=== PATIENT | male | born 1940 | race Caucasian/White ===

== ENCOUNTER 2019-07-11 10:49 | Inpatient (IN) ==
[2019-07-11] MEDS ORDERED: Furosemide 40 MG/4 ML VIAL IVP ONE (14:27)
[2019-07-11] MEDS ORDERED: Ondansetron 4 MG/2 ML VIAL IVP PRN (14:30)
[2019-07-11] MEDS ORDERED: Naloxone 0.4 MG/ML INJ IVP PRN (14:30)
[2019-07-12] MEDS: Acetaminophen 325 MG TABLET PO PRN ×2 (01:31→22:56)
[2019-07-12] MEDS: Melatonin 3 MG TABLET PO PRN ×2 (01:31→22:56)
[2019-07-12 06:13] LABS: Basophils # 0.1 K/mcL (0.0-0.2); Basophils % 0.5 %; Eosinophils # 1.2 K/mcL (0.0-0.6); Eosinophils % 9.3 %; Hematocrit 32.4 % (37.5-50.1); Immature Granulocytes % 0.4 % (0-4); Lymphocytes # 1.1 K/mcL (0.6-4.6); Lymphocytes % 8.1 %; Mean Corpuscular Hemoglobin 30.9 pg (28.0-33.3); Mean Platelet Volume 11.7 fL (9.4-12.4); Monocytes % 7.3 %; Neutrophils # 9.7 K/mcL (1.6-8.9); Platelet Count 197 K/mcL (140-400); Red Blood Count 3.56 M/mcL (4.19-5.50); Red Cell Distribution Width 14.3 % (11.5-14.5); Segmented Neutrophils % 74.4 %; White Blood Count 13.1 K/mcL (4.3-11.1)
[2019-07-12 07:02] LABS: Calcium 9.2 mg/dL (8.6-10.3); Magnesium 2.5 mg/dL (1.6-2.6); Potassium 4.7 mEq/L (3.5-5.1)
[2019-07-12 07:06] LABS: Folate 20.4 ng/mL (3.0-16.0)
[2019-07-12] MEDS ORDERED: Furosemide 40 MG/4 ML VIAL IVP SCH ×2 (09:00→21:00)
[2019-07-12] MEDS: amLODIPine 5 MG TABLET PO SCH (09:13)
[2019-07-12] MEDS: carvediloL 25 MG TABLET PO SCH ×2 (09:13→17:14)
[2019-07-12] MEDS: Aspirin Enteric Coated 325 MG Tablet PO SCH (09:13)
[2019-07-12 10:19] LABS: Procalcitonin 1.19 ng/mL (0.00-0.15)
[2019-07-12] MEDS ORDERED: levoFLOXacin 750 MG/150 ML 750 MG/150 ML BAG IVPB ONE (10:45)
[2019-07-12] MEDS: Furosemide 40 MG/4 ML VIAL IVP SCH (17:14)
[2019-07-13 05:03] LABS: Basophils # 0.1 K/mcL (0.0-0.2); Basophils % 0.6 %; Eosinophils # 1.1 K/mcL (0.0-0.6); Eosinophils % 9.8 %; Hematocrit 29.4 % (37.5-50.1); Hemoglobin 9.8 g/dL (12.9-16.9); Immature Granulocytes % 0.4 % (0-4); Lymphocytes # 0.8 K/mcL (0.6-4.6); Lymphocytes % 6.7 %; Mean Corpuscular HGB Conc 33.3 g/dL (31.6-35.5); Mean Corpuscular Hemoglobin 31.2 pg (28.0-33.3); Mean Corpuscular Volume 93.6 fL (83.0-100.0); Mean Platelet Volume 11.1 fL (9.4-12.4); Monocytes # 0.9 K/mcL (0.0-1.3); Monocytes % 8.3 %; Neutrophils # 8.3 K/mcL (1.6-8.9); Platelet Count 154 K/mcL (140-400); Red Blood Count 3.14 M/mcL (4.19-5.50); Red Cell Distribution Width 13.9 % (11.5-14.5); Segmented Neutrophils % 74.2 %; White Blood Count 11.1 K/mcL (4.3-11.1)
[2019-07-13 05:26] LABS: Calcium 8.8 mg/dL (8.6-10.3); Magnesium 2.5 mg/dL (1.6-2.6); Potassium 5.1 mEq/L (3.5-5.1)
[2019-07-13 08:44] LABS: INR 1.3; Prothrombin Time 14.2 Seconds (9.4-12.1)
[2019-07-13] MEDS ORDERED: *HR* Heparin 5,000 UNIT/ML VIAL ONE (08:47)
[2019-07-13] MEDS ORDERED: levoFLOXacin 500 MG TABLET PO SCH (09:00)
[2019-07-13] MEDS: Furosemide 40 MG/4 ML VIAL IVP SCH ×2 (09:10→18:13)
[2019-07-13] MEDS: amLODIPine 5 MG TABLET PO SCH (09:10)
[2019-07-13] MEDS: Aspirin Enteric Coated 325 MG Tablet PO SCH (09:10)
[2019-07-13] MEDS: carvediloL 25 MG TABLET PO SCH ×2 (09:10→18:12)
[2019-07-13 12:53] LABS: Bilirubin,Urine Negative (Negative); Blood,Urine Small (Negative); Clarity,Urine Clear (Clear); Color,Urine Yellow (Yellow); Glucose,Urine (UA) Normal (Normal); Ketones,Urine Negative (Negative); Leukocyte Esterase,Urine Negative (Negative); Nitrite,Urine Negative (Negative); PH,Urine 6.5 pH Units (5.0-8.0); Protein,Urine 100 mg/dL (Neg-Trace); Specific Gravity,Urine 1.012 (1.010-1.025); Urobilinogen,Urine Normal (Normal)
[2019-07-13 12:55] LABS: Bacteria,Urine None Seen per hpf (None-Few); Hyaline Casts,Urine None Seen per lpf (None-Few); Squamous Epithelial Cell,Urine Few per lpf (None-Few); WBC,Urine 0-3 per hpf (0-3)
[2019-07-13 13:03] LABS: Sodium, Urine 84.4 mEq/L
[2019-07-13 15:55] LABS: Hepatitis B Surface Antibody < 3.10 mIU/mL
[2019-07-13 16:06] LABS: Hepatitis B Surface Antigen Nonreactive (Nonreactive)
[2019-07-13] MEDS ORDERED: *HR* Heparin 10,000 UNIT/10 ML VIAL IV PRN (16:09)
[2019-07-13] MEDS ORDERED: 0.9 % Sodium Chloride 250 ML IVC PRN (16:09)
[2019-07-13] MEDS ORDERED: 0.9 % Sodium Chloride 1,000 ML PRIME SCH (16:15)
[2019-07-13] MEDS: *HR* Heparin 5,000 UNIT/ML VIAL SQ SCH (18:12)
[2019-07-14 01:24] LABS: Basophils # 0.1 K/mcL (0.0-0.2); Eosinophils # 0.2 K/mcL (0.0-0.6); Eosinophils % 3.3 %; Hematocrit 32.5 % (37.5-50.1); Hemoglobin 9.9 g/dL (12.9-16.9); Immature Granulocytes % 0.8 % (0-4); Lymphocytes # 0.9 K/mcL (0.6-4.6); Lymphocytes % 17.3 %; Mean Corpuscular HGB Conc 30.5 g/dL (31.6-35.5); Mean Corpuscular Volume 91.8 fL (83.0-100.0); Mean Platelet Volume 10.3 fL (9.4-12.4); Monocytes # 0.3 K/mcL (0.0-1.3); Monocytes % 6.7 %; Neutrophils # 3.5 K/mcL (1.6-8.9); Platelet Count 146 K/mcL (140-400); Red Blood Count 3.54 M/mcL (4.19-5.50); Red Cell Distribution Width 19.1 % (11.5-14.5); Segmented Neutrophils % 70.9 %
[2019-07-14 01:44] LABS: Calcium 7.7 mg/dL (8.6-10.3); Phosphorous 6.2 mg/dL (2.7-4.5); Potassium 4.8 mEq/L (3.5-5.1)
[2019-07-14 02:14] LABS: White Blood Count 4.9 K/mcL (4.3-11.1)
[2019-07-14] MEDS: *HR* Heparin 5,000 UNIT/ML VIAL SQ SCH ×2 (05:48→17:09)
[2019-07-14] MEDS: levoFLOXacin 500 MG TABLET PO SCH (08:59)
[2019-07-14] MEDS: Aspirin Enteric Coated 325 MG Tablet PO SCH (08:59)
[2019-07-14] MEDS: Furosemide 40 MG/4 ML VIAL IVP SCH ×2 (08:59→17:09)
[2019-07-14] MEDS: amLODIPine 5 MG TABLET PO SCH (08:59)
[2019-07-14] MEDS: carvediloL 25 MG TABLET PO SCH ×2 (08:59→17:08)
[2019-07-14] MEDS ORDERED: 0.9 % Sodium Chloride 250 ML IVC PRN (09:11)
[2019-07-14] MEDS ORDERED: *HR* Heparin 10,000 UNIT/10 ML VIAL IV PRN (09:11)
[2019-07-15] MEDS: *HR* Heparin 5,000 UNIT/ML VIAL SQ SCH ×2 (05:15→17:22)
[2019-07-15 05:38] LABS: Basophils % 0.6 %; Immature Granulocytes % 0.3 % (0-4); Mean Platelet Volume 11.5 fL (9.4-12.4)
[2019-07-15 05:40] LABS: Basophils # 0.1 K/mcL (0.0-0.2); Eosinophils # 1.2 K/mcL (0.0-0.6); Eosinophils % 10.1 %; Hematocrit 29.8 % (37.5-50.1); Hemoglobin 10.2 g/dL (12.9-16.9); Immature Platelets 5.8 % (1.1-6.1); Lymphocytes # 1.2 K/mcL (0.6-4.6); Lymphocytes % 9.6 %; Mean Corpuscular HGB Conc 34.2 g/dL (31.6-35.5); Mean Corpuscular Hemoglobin 31.3 pg (28.0-33.3); Mean Corpuscular Volume 91.4 fL (83.0-100.0); Monocytes # 1.1 K/mcL (0.0-1.3); Monocytes % 8.8 %; Neutrophils # 8.7 K/mcL (1.6-8.9); Platelet Count 91 K/mcL (140-400); Red Blood Count 3.26 M/mcL (4.19-5.50); Red Cell Distribution Width 14.4 % (11.5-14.5); Segmented Neutrophils % 70.6 %; White Blood Count 12.3 K/mcL (4.3-11.1)
[2019-07-15 06:04] LABS: Calcium 8.5 mg/dL (8.6-10.3); Magnesium 2.1 mg/dL (1.6-2.6); Phosphorous 4.1 mg/dL (2.7-4.5); Potassium 4.6 mEq/L (3.5-5.1)
[2019-07-15] MEDS: Furosemide 40 MG/4 ML VIAL IVP SCH ×2 (07:34→17:22)
[2019-07-15] MEDS: amLODIPine 5 MG TABLET PO SCH (11:06)
[2019-07-15] MEDS: carvediloL 25 MG TABLET PO SCH ×2 (11:07→17:22)
[2019-07-15] MEDS: Aspirin 81 MG TAB.CHEW PO SCH (11:07)
[2019-07-16] MEDS: *HR* Heparin 5,000 UNIT/ML VIAL SQ SCH ×2 (05:01→17:45)
[2019-07-16 05:54] LABS: Basophils # 0.1 K/mcL (0.0-0.2); Basophils % 0.7 %; Eosinophils # 1.5 K/mcL (0.0-0.6); Eosinophils % 12.7 %; Hematocrit 30.1 % (37.5-50.1); Hemoglobin 10.3 g/dL (12.9-16.9); Immature Granulocytes % 0.3 % (0-4); Lymphocytes # 1.2 K/mcL (0.6-4.6); Lymphocytes % 9.9 %; Mean Corpuscular HGB Conc 34.2 g/dL (31.6-35.5); Mean Corpuscular Hemoglobin 31.3 pg (28.0-33.3); Mean Corpuscular Volume 91.5 fL (83.0-100.0); Monocytes # 1.1 K/mcL (0.0-1.3); Monocytes % 8.8 %; Neutrophils # 8.1 K/mcL (1.6-8.9); Platelet Count 115 K/mcL (140-400); Red Blood Count 3.29 M/mcL (4.19-5.50); Red Cell Distribution Width 14.3 % (11.5-14.5); Segmented Neutrophils % 67.6 %
[2019-07-16 05:57] LABS: INR 1.1; Prothrombin Time 12.7 Seconds (9.4-12.1)
[2019-07-16 05:58] LABS: Activated Partial Thrombo Time 26.8 Seconds (26.0-36.0)
[2019-07-16 06:25] LABS: Calcium 8.6 mg/dL (8.6-10.3); Magnesium 2.2 mg/dL (1.6-2.6); Potassium 4.8 mEq/L (3.5-5.1)
[2019-07-16] MEDS ORDERED: Heparin 1,000 UNITS/500 mL 500 ML ONE (07:57)
[2019-07-16] MEDS ORDERED: 0.9 % Sodium Chloride 500 ML ONE (08:08)
[2019-07-16] MEDS ORDERED: CeFAZolin Premix DUPLEX 2,000 MG/50 ML BAG IVPB ONE (08:23)
[2019-07-16] MEDS ORDERED: *HR* Heparin 5,000 UNIT/ML VIAL ONE (08:37)
[2019-07-16] MEDS ORDERED: *HR* Heparin 10,000 UNIT/10 ML VIAL IV PRN (09:00)
[2019-07-16] MEDS ORDERED: 0.9 % Sodium Chloride 1,000 ML PRIME SCH (09:00)
[2019-07-16] MEDS ORDERED: 0.9 % Sodium Chloride 250 ML IVC PRN (09:00)
[2019-07-16] MEDS: Furosemide 40 MG/4 ML VIAL IVP SCH ×2 (09:52→17:45)
[2019-07-16] MEDS: Aspirin 81 MG TAB.CHEW PO SCH (09:53)
[2019-07-16] MEDS: levoFLOXacin 500 MG TABLET PO SCH (09:53)
[2019-07-16] MEDS: carvediloL 25 MG TABLET PO SCH ×2 (17:40→17:44)
[2019-07-16] MEDS: amLODIPine 5 MG TABLET PO SCH (17:44)
[2019-07-17 05:01] LABS: Basophils # 0.1 K/mcL (0.0-0.2); Basophils % 0.7 %; Eosinophils % 8.9 %; Hematocrit 33.3 % (37.5-50.1); Hemoglobin 11.2 g/dL (12.9-16.9); Immature Granulocytes % 0.4 % (0-4); Immature Platelets 8.3 % (1.1-6.1); Lymphocytes # 1.2 K/mcL (0.6-4.6); Lymphocytes % 10.4 %; Mean Corpuscular HGB Conc 33.6 g/dL (31.6-35.5); Mean Corpuscular Hemoglobin 31.5 pg (28.0-33.3); Mean Corpuscular Volume 93.8 fL (83.0-100.0); Mean Platelet Volume 12.1 fL (9.4-12.4); Monocytes # 1.2 K/mcL (0.0-1.3); Monocytes % 10.4 %; Red Blood Count 3.55 M/mcL (4.19-5.50); Red Cell Distribution Width 14.2 % (11.5-14.5); Segmented Neutrophils % 69.2 %; White Blood Count 11.6 K/mcL (4.3-11.1)
[2019-07-17 05:09] LABS: Platelet Count 60 K/mcL (140-400)
[2019-07-17 05:21] LABS: Calcium 8.9 mg/dL (8.6-10.3); Potassium 4.9 mEq/L (3.5-5.1)
[2019-07-17] MEDS: *HR* Heparin 5,000 UNIT/ML VIAL SQ SCH ×2 (05:25→16:46)
[2019-07-17] MEDS: Aspirin 81 MG TAB.CHEW PO SCH (09:49)
[2019-07-17] MEDS: Furosemide 40 MG/4 ML VIAL IVP SCH ×2 (09:49→16:45)
[2019-07-17] MEDS: carvediloL 25 MG TABLET PO SCH ×2 (09:49→16:45)
[2019-07-17] MEDS: amLODIPine 5 MG TABLET PO SCH (09:49)
[2019-07-18 05:31] LABS: Immature Granulocytes % 0.5 % (0-4); Mean Platelet Volume 11.9 fL (9.4-12.4)
[2019-07-18 05:33] LABS: Basophils # 0.1 K/mcL (0.0-0.2); Basophils % 0.8 %; Eosinophils # 1.2 K/mcL (0.0-0.6); Eosinophils % 11.7 %; Hematocrit 31.9 % (37.5-50.1); Immature Platelets 7.5 % (1.1-6.1); Lymphocytes # 1.3 K/mcL (0.6-4.6); Lymphocytes % 12.3 %; Mean Corpuscular HGB Conc 34.5 g/dL (31.6-35.5); Mean Corpuscular Hemoglobin 31.3 pg (28.0-33.3); Mean Corpuscular Volume 90.9 fL (83.0-100.0); Monocytes # 1.3 K/mcL (0.0-1.3); Monocytes % 12.8 %; Neutrophils # 6.4 K/mcL (1.6-8.9); Platelet Count 69 K/mcL (140-400); Red Blood Count 3.51 M/mcL (4.19-5.50); Red Cell Distribution Width 14.4 % (11.5-14.5); Segmented Neutrophils % 61.9 %; White Blood Count 10.3 K/mcL (4.3-11.1)
[2019-07-18] MEDS: *HR* Heparin 5,000 UNIT/ML VIAL SQ SCH ×2 (05:39→17:32)
[2019-07-18 05:46] LABS: Calcium 9.1 mg/dL (8.6-10.3); Magnesium 2.3 mg/dL (1.6-2.6); Phosphorous 6.6 mg/dL (2.7-4.5); Potassium 4.7 mEq/L (3.5-5.1)
[2019-07-18] MEDS ORDERED: *HR* Heparin 10,000 UNIT/10 ML VIAL IV PRN (06:27)
[2019-07-18] MEDS ORDERED: 0.9 % Sodium Chloride 250 ML IVC PRN (06:27)
[2019-07-18] MEDS ORDERED: 0.9 % Sodium Chloride 1,000 ML PRIME SCH (06:30)
[2019-07-18] MEDS: Furosemide 40 MG/4 ML VIAL IVP SCH (13:01)
[2019-07-18] MEDS: carvediloL 25 MG TABLET PO SCH ×2 (13:01→17:33)
[2019-07-18] MEDS: amLODIPine 5 MG TABLET PO SCH (13:01)
[2019-07-18] MEDS: Aspirin 81 MG TAB.CHEW PO SCH (13:01)
[2019-07-18] MEDS: Furosemide 40 MG TABLET PO SCH (17:33)
[2019-07-19] MEDS: *HR* Heparin 5,000 UNIT/ML VIAL SQ SCH ×2 (05:22→18:00)
[2019-07-19] MEDS: carvediloL 25 MG TABLET PO SCH ×2 (10:02→17:53)
[2019-07-19] MEDS: Furosemide 40 MG TABLET PO SCH ×2 (10:02→17:53)
[2019-07-19] MEDS: amLODIPine 5 MG TABLET PO SCH (10:02)
[2019-07-19] MEDS: Aspirin 81 MG TAB.CHEW PO SCH (10:02)
[2019-07-19 13:03] LABS: Hemoglobin 11.5 g/dL (12.9-16.9); Mean Corpuscular HGB Conc 34.8 g/dL (31.6-35.5); Mean Corpuscular Hemoglobin 31.9 pg (28.0-33.3); Mean Corpuscular Volume 91.7 fL (83.0-100.0); Mean Platelet Volume 11.4 fL (9.4-12.4); Platelet Count 104 K/mcL (140-400); Red Cell Distribution Width 14.3 % (11.5-14.5); White Blood Count 13.4 K/mcL (4.3-11.1)
[2019-07-19 13:24] LABS: Potassium 4.7 mEq/L (3.5-5.1)
[2019-07-20 05:41] LABS: Hematocrit 30.1 % (37.5-50.1); Hemoglobin 10.4 g/dL (12.9-16.9); Mean Corpuscular HGB Conc 34.6 g/dL (31.6-35.5); Mean Corpuscular Hemoglobin 31.2 pg (28.0-33.3); Mean Corpuscular Volume 90.4 fL (83.0-100.0); Mean Platelet Volume 12.2 fL (9.4-12.4); Platelet Count 111 K/mcL (140-400); Red Blood Count 3.33 M/mcL (4.19-5.50); Red Cell Distribution Width 14.1 % (11.5-14.5); White Blood Count 15.1 K/mcL (4.3-11.1)
[2019-07-20] MEDS: *HR* Heparin 5,000 UNIT/ML VIAL SQ SCH ×2 (05:46→17:09)
[2019-07-20 05:59] LABS: Calcium 8.8 mg/dL (8.6-10.3); Potassium 5.1 mEq/L (3.5-5.1)
[2019-07-20] MEDS ORDERED: 0.9 % Sodium Chloride 250 ML IVC PRN (07:49)
[2019-07-20] MEDS: Aspirin 81 MG TAB.CHEW PO SCH (09:16)
[2019-07-20 10:21] LABS: Bilirubin,Urine Negative (Negative); Blood,Urine Large (Negative); Clarity,Urine Cloudy (Clear); Color,Urine Yellow (Yellow); Glucose,Urine (UA) Normal (Normal); Ketones,Urine Negative (Negative); Leukocyte Esterase,Urine Negative (Negative); Nitrite,Urine Negative (Negative); PH,Urine 5.5 pH Units (5.0-8.0); Protein,Urine 100 mg/dL (Neg-Trace); Specific Gravity,Urine 1.018 (1.010-1.025); Urobilinogen,Urine Normal (Normal)
[2019-07-20 10:24] LABS: Squamous Epithelial Cell,Urine Many per lpf (None-Few)
[2019-07-20 10:36] LABS: Hyaline Casts,Urine Few per lpf (None-Few); Yeast,Urine Moderate per hpf (None Seen)
[2019-07-20 10:37] LABS: Bacteria,Urine Few per hpf (None-Few)
[2019-07-20] MEDS: carvediloL 25 MG TABLET PO SCH ×2 (14:16→17:09)
[2019-07-20] MEDS: Furosemide 40 MG TABLET PO SCH ×2 (14:18→17:09)
[2019-07-20] MEDS: amLODIPine 5 MG TABLET PO SCH (14:19)
[2019-07-20] MEDS: Piperacillin/Tazobactam 3.375 GM in 0.9 % Sodium Chloride Mini Bag 100 ML IVPB SCH (14:31)
[2019-07-21] MEDS: *HR* Heparin 5,000 UNIT/ML VIAL SQ SCH ×2 (05:27→17:13)
[2019-07-21] MEDS: Piperacillin/Tazobactam 3.375 GM in 0.9 % Sodium Chloride Mini Bag 100 ML IVPB SCH ×2 (05:27→17:12)
[2019-07-21 06:08] LABS: Hematocrit 30.4 % (37.5-50.1); Hemoglobin 10.3 g/dL (12.9-16.9); Mean Corpuscular HGB Conc 33.9 g/dL (31.6-35.5); Mean Corpuscular Hemoglobin 31.6 pg (28.0-33.3); Mean Corpuscular Volume 93.3 fL (83.0-100.0); Mean Platelet Volume 11.3 fL (9.4-12.4); Platelet Count 131 K/mcL (140-400); Red Blood Count 3.26 M/mcL (4.19-5.50); Red Cell Distribution Width 14.3 % (11.5-14.5); White Blood Count 14.8 K/mcL (4.3-11.1)
[2019-07-21 06:29] LABS: Calcium 8.5 mg/dL (8.6-10.3); Potassium 4.7 mEq/L (3.5-5.1)
[2019-07-21] MEDS: amLODIPine 5 MG TABLET PO SCH (08:26)
[2019-07-21] MEDS: Furosemide 40 MG TABLET PO SCH ×2 (08:26→17:12)
[2019-07-21] MEDS: Aspirin 81 MG TAB.CHEW PO SCH (08:26)
[2019-07-21] MEDS: carvediloL 25 MG TABLET PO SCH ×2 (08:26→17:12)
[2019-07-22] MEDS: Piperacillin/Tazobactam 3.375 GM in 0.9 % Sodium Chloride Mini Bag 100 ML IVPB SCH ×2 (06:15→17:09)
[2019-07-22] MEDS: *HR* Heparin 5,000 UNIT/ML VIAL SQ SCH ×2 (06:15→17:09)
[2019-07-22] MEDS: carvediloL 25 MG TABLET PO SCH ×2 (08:32→17:09)
[2019-07-22] MEDS: amLODIPine 5 MG TABLET PO SCH (08:32)
[2019-07-22] MEDS: Furosemide 40 MG TABLET PO SCH ×2 (08:32→17:09)
[2019-07-22] MEDS: Aspirin 81 MG TAB.CHEW PO SCH (08:32)
[2019-07-22] MEDS: Melatonin 3 MG TABLET PO PRN (20:06)
[2019-07-22] MEDS: Acetaminophen 325 MG TABLET PO PRN (20:06)
[2019-07-23 06:03] LABS: Hematocrit 28.9 % (37.5-50.1); Hemoglobin 9.9 g/dL (12.9-16.9); Mean Corpuscular HGB Conc 34.3 g/dL (31.6-35.5); Mean Corpuscular Hemoglobin 30.7 pg (28.0-33.3); Mean Corpuscular Volume 89.8 fL (83.0-100.0); Mean Platelet Volume 11.2 fL (9.4-12.4); Platelet Count 189 K/mcL (140-400); Red Blood Count 3.22 M/mcL (4.19-5.50); White Blood Count 11.8 K/mcL (4.3-11.1)
[2019-07-23 06:24] LABS: Calcium 8.5 mg/dL (8.6-10.3); Potassium 5.2 mEq/L (3.5-5.1)
[2019-07-23] MEDS: Piperacillin/Tazobactam 3.375 GM in 0.9 % Sodium Chloride Mini Bag 100 ML IVPB SCH ×2 (06:25→19:32)
[2019-07-23] MEDS: *HR* Heparin 5,000 UNIT/ML VIAL SQ SCH ×2 (06:45→19:32)
[2019-07-23] MEDS ORDERED: 0.9 % Sodium Chloride 250 ML IVC PRN (07:02)
[2019-07-23] MEDS: carvediloL 25 MG TABLET PO SCH ×2 (09:06→19:32)
[2019-07-23] MEDS: Aspirin 81 MG TAB.CHEW PO SCH (09:06)
[2019-07-23] MEDS: Furosemide 40 MG TABLET PO SCH ×2 (09:06→19:32)
[2019-07-23] MEDS: amLODIPine 5 MG TABLET PO SCH (09:06)
[2019-07-24] MEDS: *HR* Heparin 5,000 UNIT/ML VIAL SQ SCH (04:41)
[2019-07-24] MEDS: Piperacillin/Tazobactam 3.375 GM in 0.9 % Sodium Chloride Mini Bag 100 ML IVPB SCH (04:42)
[2019-07-24] MEDS: amLODIPine 5 MG TABLET PO SCH (08:33)
[2019-07-24] MEDS: Aspirin 81 MG TAB.CHEW PO SCH (08:33)
[2019-07-24] MEDS: carvediloL 25 MG TABLET PO SCH (08:33)
[2019-07-24] MEDS: Furosemide 40 MG TABLET PO SCH (08:33)
[2019-07-24 11:27] VITALS: BP 130/72
[2019-07-25] MEDS ORDERED: Aspirin Enteric Coated 325 MG Tablet PO SCH (09:00)
== END 2019-07-24 15:54 | DRG 291 ==
LOC: 2ANU 13:11 → SUATTDRO 13:11
PROVIDERS: ADMIT Pharmacist; ATTEND Internal Medicine
PROC: IRPERMA (2019-07-16 13:00)